=== PATIENT | male | born 1940 | race Caucasian/White ===

== ENCOUNTER 2017-11-04 10:49 | Inpatient (IN) | payer MEDICARE, OTHER ==
--- NOTE | 2017-11-04 10:55 | EDM.PDOC ---
ED HPI GENERAL MEDICAL PROBLEM - General Chief Complaint: Cardiovascular Problem Stated Complaint: A-fib Time Seen by Provider: 11/04/17 10:50 Source of Information: Reports: Patient, EMS, EMS Notes Reviewed, Family (Son), Old Records ([facility] EMR. No paper hospital chart available. ) History Limitations: Reports: No Limitations - History of Present Illness INITIAL COMMENTS - FREE TEXT/NARRATIVE: The patient was brought to the emergency room via ambulance with strategic consultant accompaniment after intercept with phlebotomy manager from the [facility] in [place]. Note that the patient was initially briefly evaluated by his regular provider, Helena Talamantes PA-C, at [facility] in [place], with EKG and 4 baby aspirin chew and swallow given in the clinic during that evaluation despite current Coumadin therapy. She did call me prior to patient's transfer for update of his history and care. The paramedics did call me prior to the patient' s arrival to our emergency room for permission to give one sublingual nitroglycerin tablet with resolution of his chest discomfort at time of arrival to this facility. Note that the patient initially had 6/10 bilateral chest pressure with radiation to the cervical regions bilaterally and mid thoracic area after waking up from sleep at about 8 AM this morning. He did take his medications this morning with no history of medication noncompliance. Note that the patient was evaluated in the emergency room at [facility] on 10/31 with discontinuation of his previous Lopressor at 12.5 mg by mouth twice a day secondary to some moderate bradycardia with heart rate in the 40s at that time. The patient did have some mild dyspnea with exertion and dizziness this morning with his above symptoms but no history of diaphoresis, paresthesias, orthostasis , orthopnea, recent decreased exercise tolerance, or other anginal-type symptoms. No recent history of abdominal pain, heartburn, nausea, diarrhea, melena, gross hematochezia, or any food intolerance, including fatty foods, etc. with normal bowel movement earlier this morning. The patient has had some mild URI symptoms and nonproductive cough during the last couple of weeks with no recent use of cold medications, etc.. No history of recent headaches, visual changes, diplopia, change in mental status, or other change in neurological status. He also denies any gross hematuria, colic, or other UTI symptoms Onset: Sudden Onset Date: 11/04/17 Onset Time: 08:00 Duration: Improving Location: Reports: Neck, Chest, Back, Radiates to (As above). Denies: Head, Face, Abdomen, Pelvis, Upper Extremity, Left, Upper Extremity, Right Quality: Reports: Pressure Severity: Moderate Improves with: Reports: Medication Worsens with: Reports: None Context: Reports: Other (As above) Associated Symptoms: Reports: Chest Pain, Cough, Shortness of Breath. Denies: Confusion, cough w sputum, Diaphoresis, Fever/Chills, Headaches, Loss of Appetite, Malaise, Nausea/Vomiting, Seizure, Syncope, Weakness Treatments PITCH GATHERER: Reports: Aspirin, Nitroglycerin, See EMS Report. Denies: IV/IO , Oxygen - Related Data Allergies Allergy/AdvReac Type Severity Reaction Status Date / Time No Known Allergies Allergy Verified 11/04/17 11:43 Home Meds: Home Meds Lisinopril [Prinivil] 20 mg PO DAILY 12/05/16 [History] atorvaSTATin [Lipitor] 10 mg PO DAILY 12/05/16 [History] Warfarin [Coumadin] 5 mg PO DAILY@1800 #60 tablet 12/09/16 [Rx] Omeprazole 20 mg PO DAILY #30 cap.cr 12/30/16 [Rx] Past Medical History HEENT History: Reports: Hard of Hearing, Impaired Vision, Other (See Below). Denies: Allergic Rhinitis, Cataract, Glaucoma, Macular Degeneration, Retinal Detachment Other HEENT History: Patient wears glasses. 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 Cardiovascular History: Reports: Afib, Arrhythmia (PVCs), High Cholesterol, Hypertension. Denies: Aneurysm, Blood Clots/VTE/DVT, CAD, Cardiomyopathy, Heart Failure, Heart Murmur, MO, Pacemaker, PVD, Stents, Syncope Other Cardiovascular History: Recurrent Afib with RVR initially diagnosed on with current Coumadin therapy. Additional history of PVCs. Dyslipidemia Respiratory History: Denies: Asthma, COPD, Intubation, Difficult, Intubation, Previous, PE, Pneumothorax, Sleep Apnea Gastrointestinal History: Reports: Diverticulosis, GERD, PUD, Other (See Below) . Denies: Celiac Disease, Cholelithiasis, Chronic Constipation, Chronic Diarrhea, Colon Polyp, GI Bleed, Hepatitis, Inflammatory Bowel Disease, Irritable Bowel Syndrome, Jaundice, Pancreatitis Other Gastrointestinal History: Previous history of gastric ulcer. Diverticulosis with history of diverticulitis on 12/25/16 Genitourinary History: Reports: BPH. Denies: Acute Renal Failure, Chronic Renal Insuffiency, Dialysis, Renal Calculus, STD, Urinary Incontinence, UTI, Recurrent Musculoskeletal History: Reports: Arthritis, Back Pain, Chronic, Fracture, Neck Pain, Chronic, Osteoarthritis, Other (See Below). Denies: Amputation, Gout, RA , SLE Other Musculoskeletal History: Left wrist fracture in 1986 Neurological History: Reports: None. Denies: Alzheimers Disease, Cerebral Aneurysms, Cerebral Palsy, Concussion, CVA, Headaches, Chronic, Head Trauma, Migraines, MS, Neuropathy, Diabetic, Neuropathy, Peripheral, Parkinson's, Seizure, TIA Psychiatric History: Reports: None. Denies: Abuse, Victim of, ADD, ADHD, Addiction, Anxiety, Dementia, Depression, Psych Hospitalization(s), PTSD, Suicide Attempt, Suicidal Ideation Endocrine/Metabolic History: Reports: None. Denies: Diabetes, Type I, Diabetes , Type II, Diabetes Mellitus, Type 3c, Hypothyroidism, IDDM Hematologic History: Reports: Anemia. Denies: Blood Transfusion(s), Iron Deficiency Immunologic History: Reports: None. Denies: AIDS, HIV, SLE Oncologic (Cancer) History: Reports: None. Denies: Basal Cell Carcinoma, Colon , Hodgkin's Lymphoma, Leukemia, Lymphoma, Malignant Melanoma, Non-Hodgkin's Lymphoma, Prostate, Squamous Cell Carcinoma Dermatologic History: Reports: None. Denies: Eczema, Psoriasis - Infectious Disease History Infectious Disease History: Reports: Chicken Pox, Mumps. Denies: C-Difficile, Measles, Meningitis, Mononucleosis, MRSA, Pertussis (Whooping Cough), Rheumatic Fever, Rubella, Scarlet Fever, Shingles, TB, VRE - Past Surgical History Head Surgeries/Procedures: Reports: None HEENT Surgical History: Reports: Oral Surgery, Other (See Below). Denies: Adenoidectomy, Cataract Surgery, Eye Surgery, Laser Surgery, LASIK, Myringotomy w Tube(s), Naso-Sinus Surgery, Polypectomy, Tonsillectomy Other HEENT Surgeries/Procedures: Complete teeth extraction with no current dentures Cardiovascular Surgical History: Reports: None. Denies: Varicose, Vascular Surgery Respiratory Surgical History: Reports: None. Denies: Lung Biopsies, Thoracentesis GI Surgical History: Reports: None. Denies: Appendectomy, Cholecystectomy, Colonoscopy, EGD, Hernia, Abdominal, Hernia, Inguinal, Hernia Repair/Other, Polypectomy Male Surgical History: Reports: None. Denies: Circumcision, TURP- Transurethral Resection of Prostate, Vasectomy Endocrine Surgical History: Reports: None Neurological Surgical History: Reports: None. Denies: C-Spine, Discectomy, Laminectomy, Lumbar Spine, Sacral Spine, Spinal Fusion, Vertebroplasty Musculoskeletal Surgical History: Reports: None. Denies: Arthroscopic Procedure , Carpal Tunnel, Ganglion Cyst, Hip Replacement, ORIF, Shoulder Surgery Oncologic Surgical History: Reports: None Dermatological Surgical History: Reports: None - Past Imaging History Past Imaging History: Reports: Cardiac Echo (Possible echocardiogram in November 2016 with results not available), CAT Scan (CT of the abdomen and pelvis with IV contrast on 12/25/16) Social & Family History - Family History Family Medical History: Noncontributory HEENT: Reports: None. Denies: Allergic Rhinitis, Glaucoma, Macular Degeneration , Retinal Detachment Cardiac: Reports: Arrhythmia, CAD, High Cholesterol, Hypertension, MO, Other ( See Below). Denies: Afib, Aneurysm, Blood Clots/VTE/DVT, Bypass, Heart Failure , Heart Murmur, PVD/COD, Syncope Other Cardiac Family History: Mother with unknown type of arrhythmia and fatal MO at age 49 with previous PTCA/stents. Father from an MO at age 68. Hypertension and hyperlipidemia mother Respiratory: Reports: None. Denies: COPD, PE, Pneumothorax, Sleep Apnea GI: Reports: GERD, PUD, Other (See Below). Denies: Celiac Disease, Cholelithiasis, Colon Polyps, GI bleed, Hepatitis, Inflammatory Bowel Disease, Irritable Bowel Syndrome, Pancreatitis Other GI Family History: Father with GERD and peptic ulcer disease : Reports: None. Denies: Diabetic Nephropathy, Dialysis, Renal Calculus, Renal Disease/Insufficiency, UTI, Recurrent OBGYN: Reports: None. Denies: Endometriosis, Recurrent Spontaneous Musculoskeletal: Reports: None. Denies: Gout, Osteoarthritis, RA, SLE Neurological: Reports: None. Denies: Alzheimers Disease, CVA, Dementia, Migraines, MS, Neuropathy, Diabetic, Parkinson's, Seizure, TIA Psychiatric: Reports: None. Denies: Abuse, Victim of, ADD, ADHD, Anxiety, Depression, Psych Hospitalization(s), PTSD, Suicide Attempt Endocrine/Metabolic: Reports: Diabetes, type II, Other (See Below). Denies: Hypothyroidism, IDDM Other Endocrine/Metabolic Family History: Mother, daughter, and paternal great uncle with diabetes mellitus Hematologic: Reports: None. Denies: Anemia, Transfusion Reaction Immunologic: Reports: None. Denies: AIDS, HIV, SLE Dermatologic: Reports: None. Denies: Eczema, Psoriasis Oncologic: Reports: None. Denies: Colon, Hodgkin's Lymphoma, Leukemia, Lymphoma , Non-Hodgkin's Lymphoma, Prostate, Skin - Tobacco Use Smoking Status *Q: Never Smoker Tobacco Use Within Last Twelve Months: No Used Tobacco, but Quit: No Smoking Cessation Information Provided To Patient: No Second Hand Smoke Exposure: No Second Hand Smoke Education Provided: No - Caffeine Use Caffeine Use: Reports: Soda (1 soda per week). Denies: Coffee, Energy Drinks, Tea Caffeine Use Comment: drinks decaf coffee, minimal soda - Alcohol Use Alcohol Use History: No Days Per Week of Alcohol Use: 0 (No previous DWIs, problems with alcohol abuse, etc.) Alcohol Use in Last Twelve Months: No - Recreational Drug Use Recreational Drug Use: No Drug Use in Last 12 Months: No Recreational Drug Type: Denies: Amphetamines (Speed), Cocaine, Heroin, Inhalants (Glues, Solvents, Aerosols), LSD (Acid), Marijuana/Hashish, Methamphetamine, Morphine, Oxycodone - Living Situation & Occupation Living situation: Reports: (1984, 2 children), Alone Occupation: Employed ([employer] and former) ED ROS GENERAL - Review of Systems Review Of Systems: ROS reveals no pertinent complaints other than HPI. ED EXAM, GENERAL - Physical Exam Exam: See Below Exam Limited By: No Limitations General Appearance: Alert, WD/WN, No Apparent Distress Eye Exam: Bilateral Eye: EOMI, Normal Inspection, PERRL Ears: Normal External Exam, Normal Canal, Hearing Loss (Bilateral hearing aids) Nose: Normal Inspection, Normal Mucosa, No Blood Throat/Mouth: Normal Lips, Normal Gums, Normal Oropharynx, Normal Voice, No Airway Compromise. No: Normal Teeth (Complete absent dentition), Dysphagia, Inflammation, Perioral Cyanosis Head: Atraumatic, Normocephalic. No: Facial Swelling, Facial Tenderness, Sinus Tenderness Neck: Supple, Non-Tender, Full Range of Motion, Carotid Bruit (Mild bilateral carotid bruits). No: Lymphadenopathy (L), Lymphadenopathy (R), Thyromegaly Respiratory/Chest: No Respiratory Distress, No Accessory Muscle Use, Chest Non- Tender, Rales (Mild bilateral basilar rales). No: Pleural Rub, Retractions, Prolonged Expiration Cardiovascular: No Edema, No Gallop, No JVD, No Murmur, No Rub, Tachycardia, Irregularly Irregular. No: Gallop/S3, Gallop/S4, Friction Rub Peripheral Pulses: 2+: Radial (L), Radial (R), Dorsalis Pedis (L), Dorsalis Pedis (R) GI/Abdominal: Normal Bowel Sounds, Soft, Non-Tender, No Organomegaly, No Distention, No Abnormal Bruit, No Mass, Pelvis Stable. No: Guarding (Male) Exam: Deferred Rectal (Males) Exam: Deferred Back Exam: Normal Inspection, Full Range of Motion. No: CVA Tenderness (L), CVA Tenderness (R), Muscle Spasm Extremities: Normal Inspection, Normal Range of Motion, Non-Tender, No Pedal Edema, Normal Capillary Refill. No: Cecilia's Sign Neurological: Alert, Oriented, CN II-XII Intact, Normal Cognition, Normal Gait, Normal Reflexes (Negative Babinski's), No Motor/Sensory Deficits Psychiatric: Normal Affect, Normal Mood Skin Exam: Warm, Dry, Intact, Normal Color, No Rash. No: Diaphoretic, Wound/ Incision Lymphatic: No Adenopathy EKG INTERPRETATION EKG Date: 11/04/17 Time: 11:12 Rhythm: A-Fib Rate (Beats/Min): 145 [place]: Normal (Left cardiac axis) P-Wave: Variable QRS: Normal (QRS interval of 0.08 seconds) ST-T: Depressed (1-[address] depressions in leads V3 through V5 with nonspecific ST changes in leads 1 and V6) QT: Normal PA/PQ Interval: Not applicable with poor R-wave progression in the anterior leads Comparison: Change From Previous EKG (Improved atrial fibrillation since previous EKG at the [facility] earlier this morning at 09:04 hours for repeat run of ventricular tachycardia at that time. Note previous normal sinus rhythm with heart rate of 48, poor R-wave progression, and biphasic P waves at time of EKG on 10/31/17. Follow-up EKG in this facility at 11:18 a.m. showed improved heart rate of 107 with resolution/improvement of previous nonspecific ST changes/depression as above) EKG Interpretation Comments: 1. Atrial fibrillation with rapid ventricular response 2. PVCs with short 4 beat run of PVCs 3. Anterolateral cardiac ischemia Course - Vital Signs Last Recorded V/S: Last Vital Signs Temp 37.2 C 11/04/17 10:50 Pulse 90 11/04/17 12:00 Resp 16 11/04/17 12:00 BP 105/84 11/04/17 12:00 Pulse Ox 100 11/04/17 12:00 Vital Signs - 24 hr 11/04/17 11/04/17 11/04/17 10:50 11:01 11:07 Temperature [ 37.2 C Temporal] Pulse, Peripheral Pulse, 172 H Peripheral [ Pulse Oximetry] Respiratory 14 Rate Blood Pressure Blood Pressure 108/66 92/61 87/62 L [Left Upper Arm ] O2 Sat by Pulse 96 Oximetry 11/04/17 11/04/17 11/04/17 11:13 11:14 11:16 Temperature [ Temporal] Pulse, 150 H Peripheral Pulse, 117 H 105 H Peripheral [ Pulse Oximetry] Respiratory 16 19 Rate Blood Pressure 89/62 L Blood Pressure 104/61 103/65 [Left Upper Arm ] O2 Sat by Pulse 99 99 Oximetry 11/04/17 11/04/17 11/04/17 11:30 11:45 12:00 Temperature [ Temporal] Pulse, Peripheral Pulse, 103 H 102 H 90 Peripheral [ Pulse Oximetry] Respiratory 16 14 16 Rate Blood Pressure Blood Pressure 103/73 115/66 105/84 [Left Upper Arm ] O2 Sat by Pulse 99 100 100 Oximetry - Orders/Labs/Meds Orders: Active Orders 24 hr Category Date Time Status Cardiac Monitoring [RC] . DIRECTED Care 11/04/17 10:56 Active EKG Documentation Completion [RC] ASDIRECTED Care 11/04/17 10:56 Active Oxygen Therapy, ED [RC] CONTINUOUS Care 11/04/17 10:56 Active Peripheral IV Care [RC] . DIRECTED Care 11/04/17 10:56 Active Pulse Oximetry [RC] CONTINUOUS Care 11/04/17 10:56 Active Up With Assistance [RC] PFP Care 11/04/17 10:56 Active Vital Signs [RC] PFP Care 11/04/17 10:56 Active Nothing per Oral Now Diet [DIET] Diet 11/04/17 Breakfast Active Chest 1V Frontal [CR] Stat Exams 11/04/17 10:56 Ordered Lactated Ringers [Ringers, Lactated] 1,000 ml Med 11/04/17 11:41 Ordered IV NOW Sodium Chloride 0.9% [Saline Flush] Med 11/04/17 10:56 Active 10 ml FLUSH ASDIRECTED PRN Obtain Past Medical Record [OM.PC] Urgent Oth 11/04/17 10:56 Active Peripheral IV Insertion Adult [OM.PC] Stat Oth 11/04/17 10:56 Ordered Resuscitation Status Stat Resus Stat 11/04/17 10:56 Ordered Medication Orders Lactated Ringer's (Ringers, Lactated) 1,000 mls @ 30 mls/hr IV NOW STA Stop: 11/05/17 21:00 Sodium Chloride (Saline Flush) 10 ml FLUSH ASDIRECTED PRN PRN Reason: Keep Vein Open Last Admin: 11/04/17 11:24 Dose: 10 ml Admin: 11/04/17 11:23 Dose: 10 ml Labs: Laboratory Tests 11/04/17 11/04/17 11/04/17 Range/Units 11:00 11:00 11:00 WBC 9.3 (4.0-10.2) K/uL RBC 4.69 (4.33-5.41) M/uL Hgb 14.6 (13.1-16.8) g/dL Hct 41.7 (39.0-49.0) % MCV 88.9 (84.0-98.0) fL MCH 31.1 (28.2-33.3) pg MCHC 35.0 (31.7-36.0) g/dL RDW 13.6 (11.2-14.1) % Plt Count 168 (150-350) K/uL Neut % (Auto) 67.0 (45.0-80.0) % Lymph % (Auto) 22.5 (10.0-50.0) % [place] % (Auto) 9.0 (2.0-14.0) % Eos % (Auto) 1.2 (0.0-5.0) % Baso % (Auto) 0.3 (0.0-2.0) % Neut # (Auto) 6.21 (1.40-7.00) K/uL Lymph # (Auto) 2.08 (0.50-3.50) K/uL [place] # (Auto) 0.83 (0.00-1.00) K/uL Eos # (Auto) 0.11 (0.00-0.50) K/uL Baso # (Auto) 0.03 (0.00-0.20) K/uL PT 27.9 H (9.8-11.7) SEC INR 2.5 APTT 36.4 H (22.1-29.8) SEC D-Dimer, Quantitative < 100 (0-400) ng/mL Sodium (136-145) mmol/L Potassium (3.5-5.1) mmol/L Chloride (98-107) mmol/L Carbon Dioxide (21.0-32.0) mmol/L BUN (7-18) mg/dL Creatinine (0.51-1.17) mg/dL Est Cr Clr Drug Dosing mL/min Estimated GFR (MDRD) mL/min Glucose (74-106) mg/dL Lactic Acid (0.4-2.0) mmol/L Uric Acid (2.6-7.2) mg/dL Calcium (8.5-10.1) mg/dL Magnesium (1.8-2.4) mg/dL Total Bilirubin (0.2-1.0) mg/dL AST (15-37) U/L ALT (12-78) U/L Alkaline Phosphatase (46-116) IU/L Creatine Kinase (26-308) U/L Creatine Kinase Index (0.0-2.5) % CK-MB (CK-2) (0.00-3.60) ng/mL Troponin I (0.000-0.056) ng/mL NT-Pro-B Natriuret Pep (0-125) pg/mL Total Protein (6.4-8.2) g/dL Albumin (3.4-5.0) g/dL TSH, Ultra Sensitive (0.358-3.740) mIU/mL 11/04/17 11/04/17 Range/Units 11:00 11:00 WBC (4.0-10.2) K/uL RBC (4.33-5.41) M/uL Hgb (13.1-16.8) g/dL Hct (39.0-49.0) % MCV (84.0-98.0) fL MCH (28.2-33.3) pg MCHC (31.7-36.0) g/dL RDW (11.2-14.1) % Plt Count (150-350) K/uL Neut % (Auto) (45.0-80.0) % Lymph % (Auto) (10.0-50.0) % [place] % (Auto) (2.0-14.0) % Eos % (Auto) (0.0-5.0) % Baso % (Auto) (0.0-2.0) % Neut # (Auto) (1.40-7.00) K/uL Lymph # (Auto) (0.50-3.50) K/uL [place] # (Auto) (0.00-1.00) K/uL Eos # (Auto) (0.00-0.50) K/uL Baso # (Auto) (0.00-0.20) K/uL PT (9.8-11.7) SEC INR APTT (22.1-29.8) SEC D-Dimer, Quantitative (0-400) ng/mL Sodium 137 (136-145) mmol/L Potassium 3.8 (3.5-5.1) mmol/L Chloride 104 (98-107) mmol/L Carbon Dioxide 24.1 (21.0-32.0) mmol/L BUN 15 (7-18) mg/dL Creatinine 1.14 (0.51-1.17) mg/dL Est Cr Clr Drug Dosing 56.92 mL/min Estimated GFR (MDRD) > 60 mL/min Glucose 153 H (74-106) mg/dL Lactic Acid 1.9 (0.4-2.0) mmol/L Uric Acid 5.9 (2.6-7.2) mg/dL Calcium 8.8 (8.5-10.1) mg/dL Magnesium 1.7 L (1.8-2.4) mg/dL Total Bilirubin 0.9 (0.2-1.0) mg/dL AST 18 (15-37) U/L ALT 19 (12-78) U/L Alkaline Phosphatase 81 (46-116) IU/L Creatine Kinase 185 (26-308) U/L Creatine Kinase Index 1.6 (0.0-2.5) % CK-MB (CK-2) 2.90 (0.00-3.60) ng/mL Troponin I 0.016 (0.000-0.056) ng/mL NT-Pro-B Natriuret Pep 419 H (0-125) pg/mL Total Protein 7.3 (6.4-8.2) g/dL Albumin 3.8 (3.4-5.0) g/dL TSH, Ultra Sensitive 3.416 (0.358-3.740) mIU/mL Meds: Medications Generic Name Dose Route Start Last Admin Trade Name Freq PRN Reason Stop Dose Admin Lactated Ringer's 1,000 mls @ 30 mls/hr 11/04/17 11:41 Ringers, Lactated IV 11/05/17 21:00 NOW STA Sodium Chloride 10 ml 11/04/17 10:56 11/04/17 11:24 Saline Flush FLUSH 10 ml ASDIRECTED PRN Administration Keep Vein Open Discontinued Medications Generic Name Dose Route Start Last Admin Trade Name Freq PRN Reason Stop Dose Admin Diltiazem HCl 20 mg 11/04/17 10:57 11/04/17 11:06 Diltiazem IVPUSH 11/04/17 10:58 20 mg ONETIME ONE Administration Famotidine 40 mg 11/04/17 10:56 11/04/17 11:09 Pepcid IVPUSH 11/04/17 10:57 40 mg ONETIME ONE Administration Lactated Ringer's 1,000 mls @ 999 mls/hr 11/04/17 11:14 11/04/17 11:16 Ringers, Lactated IV 11/04/17 12:14 999 mls/hr .BOLUS ONE Administration Metoprolol Tartrate 2.5 mg 11/04/17 11:13 11/04/17 11:14 Lopressor IVPUSH 11/04/17 11:14 2.5 mg ONETIME ONE Administration Metoprolol Tartrate Confirm 11/04/17 11:14 11/04/17 11:24 Lopressor Administered 11/04/17 11:15 Not Given Dose 5 mg .ROUTE .STK-MED ONE - Radiology Interpretation Free Text/Narrative:: cardiac monitor technician initially showed atrial fibrillation with rapid ventricular response initially in the 170s to 210s with very occasional PVCs noted but no ventricular tachycardia with improvement of heart rate to the 90s to 100s prior to admission Chest x-ray, portable, shows moderate COPD changes with no pulmonary infiltrates , pneumothorax, etc. Multiple pulmonary hypertension versus mild centralized CHF and/or pulmonary hypertension with some cardiomegaly Departure - Departure Time of Disposition: 12:25 Disposition: Admitted As Inpatient 66 Condition: Good Clinical Impression: Atrial fibrillation, Chest pain, CHF (congestive heart failure), Dyslipidemia, Hypertension, Peptic reflux disease, Hypomagnesemia, COPD (chronic obstructive pulmonary disease), Osteoarthritis, PVCs (premature ventricular contractions), Hyperglycemia - Problem List & Annotations (1) Chest pain SNOMED Code(s): 47958350 Code(s): R07.9 - CHEST PAIN, UNSPECIFIED Status: Acute Priority: High Current Visit: Yes Onset Date: 11/04/17 Annotation/Comment:: Chest pain completely resolved upon arrival to our facility as above. Symptoms also resolved after improvement of his tachycardia as above. Note initial evidence of anterolateral cardiac ischemia with his tachycardia, however improved EKG prior to admission. Various therapeutic options were given to the patient and his son, including transfer to [place], however they do wish to remain in this facility for recommended further cardiac workup. Initiate standard rule out MO orders with chest pain protocol initiated immediately upon patient's arrival to the emergency room. Note that the patient did previously receive aspirin at the clinic prior to transfer as above. Cardiology consultation depending on his clinical course. Further cardiac workup recommended as below. If patient requires transfer, they are requesting transfer to [facility] in [place]. Qualifiers: Chest pain type: chest pain due to myocardial ischemia Ischemic chest pain type: stable angina pectoris Qualified Code(s): I20.8 - Other forms of angina pectoris (2) Atrial fibrillation SNOMED Code(s): 27419351 Code(s): I48.91 - UNSPECIFIED ATRIAL FIBRILLATION Status: Acute Priority : High Current Visit: Yes Onset Date: 12/06/16 Annotation/Comment:: Persistent atrial fibrillation however improved tachycardia at time of admission. Note aggressive treatment as above. Note previous intolerance to low- dose beta maude therapy with exacerbation likely secondary to sudden discontinuation of his beta maude on 10/31 as above. Medication adjustment during this hospitalization with initiation of low-dose beta maude and diltiazem therapy orally on admission. Note PVCs and short run of ventricular tachycardia as above with patient currently on Coumadin with therapeutic INR today Qualifiers: Atrial fibrillation type: paroxysmal Qualified Code(s): I48.0 - Paroxysmal atrial fibrillation (3) PVCs (premature ventricular contractions) SNOMED Code(s): 96324592 Code(s): I49.3 - VENTRICULAR PREMATURE DEPOLARIZATION Status: Chronic Priority: High Current Visit: Yes Annotation/Comment:: As above. Note short run of ventricular tachycardia as above. Consider event monitor once medications have been adjusted (4) CHF (congestive heart failure) SNOMED Code(s): 73767199 Code(s): I50.9 - HEART FAILURE, UNSPECIFIED Status: Acute Priority: High Current Visit: Yes Onset Date: 11/04/17 Annotation/Comment:: Mild CHF closely secondary to his tachycardia. Secondary to some mild borderline hypertension delay diuretic therapy for now. Patient already on an ROYER inhibitor. Note previous echocardiogram in November 2016 with consideration of echocardiogram, Cardiolite stress test, etc. on an outpatient basis. Repeat blood work and EKG in the a.m. Qualifiers: Heart failure type: unspecified Heart failure chronicity: acute Qualified Code(s): I50.9 - Heart failure, unspecified (5) COPD (chronic obstructive pulmonary disease) SNOMED Code(s): 60986234 Code(s): J44.9 - CHRONIC OBSTRUCTIVE PULMONARY DISEASE, UNSPECIFIED Status : Chronic Priority: Medium Current Visit: Yes Annotation/Comment:: Nonproductive cough with no current medical therapy, recent history of fever, etc. Consider PFTs once his cardiac status has been determined Qualifiers: COPD type: emphysema Emphysema type: panlobular Qualified Code(s): J43.1 - Panlobular emphysema (6) Dyslipidemia SNOMED Code(s): 168230193 Code(s): E78.5 - HYPERLIPIDEMIA, UNSPECIFIED Status: Chronic Priority: Medium Current Visit: Yes Annotation/Comment:: Lipid panel in the a.m.. His statin therapy will need to be decreased secondary to his new diltiazem therapy (7) Hypertension SNOMED Code(s): 33166267 Code(s): I10 - ESSENTIAL (PRIMARY) HYPERTENSION Status: Chronic Priority : High Current Visit: Yes Annotation/Comment:: His blood pressures were somewhat low initially with treatment of his tachycardia. 350 mL bolus of lactated Ringer's given IV with continuation of IV fluids at 30 mL per hour with discretion secondary to his mild CHF. His blood pressure was significantly improved at time of admission Qualifiers: Hypertension type: essential hypertension Qualified Code(s): I10 - Essential (primary) hypertension (8) Hypomagnesemia SNOMED Code(s): 248399224 Code(s): E83.42 - HYPOMAGNESEMIA Status: Chronic Priority: Medium Current Visit: Yes Onset Date: 11/04/17 Annotation/Comment:: Initiate low- dose magnesium oxide therapy (9) Osteoarthritis SNOMED Code(s): 410102974 Code(s): M19.90 - UNSPECIFIED OSTEOARTHRITIS, UNSPECIFIED SITE Status: Chronic Priority: Medium Current Visit: Yes Annotation/Comment:: Stable by history Qualifiers: Osteoarthritis location: multiple joints Osteoarthritis type: primary Qualified Code(s): M15.0 - Primary generalized (osteo)arthritis (10) Peptic reflux disease SNOMED Code(s): 69646426 Code(s): K21.9 - GASTRO-ESOPHAGEAL REFLUX DISEASE WITHOUT ESOPHAGITIS Status: Chronic Priority: Medium Current Visit: Yes Annotation/Comment:: Stable by patient history. High-dose IV Pepcid given as GI prophylaxis (11) Hyperglycemia SNOMED Code(s): 75894014 Code(s): R73.9 - HYPERGLYCEMIA, UNSPECIFIED Status: Acute Priority: Medium Current Visit: Yes Onset Date: 11/04/17 Annotation/Comment:: Mildly elevated glucose today. Glycosylated hemoglobin in the a.m. with no known previous history of diabetes - Problem List Review Problem List Initiated/Reviewed/Updated: Yes - My Orders Last 24 Hours: My Active Orders 11/04/17 10:56 Cardiac Monitoring [RC] . DIRECTED EKG Documentation Completion [RC] ASDIRECTED Oxygen Therapy, ED [RC] CONTINUOUS Peripheral IV Care [RC] . DIRECTED Pulse Oximetry [RC] CONTINUOUS Up With Assistance [RC] PFP Vital Signs [RC] PFP Chest 1V Frontal [CR] Stat Sodium Chloride 0.9% [Saline Flush] 10 ml FLUSH ASDIRECTED PRN Obtain Past Medical Record [OM.PC] Urgent Peripheral IV Insertion Adult [OM.PC] Stat Resuscitation Status Stat 11/04/17 11:41 Lactated Ringers [Ringers, Lactated] 1,000 ml IV NOW 11/04/17 Breakfast Nothing per Oral Now Diet [DIET] - Assessment/Plan Admission H&P: Please use this note as an admission H&P Last 24 Hours: My Active Orders 11/04/17 10:56 Cardiac Monitoring [RC] . DIRECTED EKG Documentation Completion [RC] ASDIRECTED Oxygen Therapy, ED [RC] CONTINUOUS Peripheral IV Care [RC] . DIRECTED Pulse Oximetry [RC] CONTINUOUS Up With Assistance [RC] PFP Vital Signs [RC] PFP Chest 1V Frontal [CR] Stat Sodium Chloride 0.9% [Saline Flush] 10 ml FLUSH ASDIRECTED PRN Obtain Past Medical Record [OM.PC] Urgent Peripheral IV Insertion Adult [OM.PC] Stat Resuscitation Status Stat 11/04/17 11:41 Lactated Ringers [Ringers, Lactated] 1,000 ml IV NOW 11/04/17 Breakfast Nothing per Oral Now Diet [DIET] Assessment:: As above Plan: As above. Extensive precautions were given to the patient and his son, who are in agreement with the treatment plan. The patient will require about 3-4 days of inpatient/acute care secondary to multiple health problems as above. Ranjith Calvo M.D. at the [facility] assumes care in the a.m.
[2017-11-04] MEDS ORDERED: Famotidine 20 MG/2 ML SDV IVPUSH ONE (10:56)
[2017-11-04] MEDS ORDERED: Diltiazem 25 MG/5 ML SDV IVPUSH ONE (10:57)
[2017-11-04] MEDS ORDERED: Metoprolol Tartrate 5 MG/5 ML SDV IVPUSH ONE (11:13)
[2017-11-04] MEDS ORDERED: Lactated Ringers 1,000 ML IV ONE (11:14)
[2017-11-04] MEDS ORDERED: Metoprolol Tartrate 5 MG/5 ML SDV ONE (11:14)
[2017-11-04] MEDS: Sodium Chloride 0.9% 10 ML Syringe FLUSH PRN ×2 (11:23→11:24)
[2017-11-04 11:31] LABS: CHLORIDE,CL 104 mmol/L (98-107); SODIUM,NA 137 mmol/L (136-145)
[2017-11-04] MEDS ORDERED: Lactated Ringers 1,000 ML IV STA ×2 (11:41→13:05)
[2017-11-04] MEDS ORDERED: Temazepam 15 MG Cap PO PRN (12:49)
[2017-11-04] MEDS ORDERED: Sodium Chloride 0.9% 10 ML Syringe FLUSH PRN (12:49)
[2017-11-04] MEDS ORDERED: Metoprolol Succinate 25 MG Tab.ER PO ONE (12:59)
[2017-11-04] MEDS ORDERED: Magnesium Oxide 400 MG Tab PO ONE (12:59)
[2017-11-04] MEDS ORDERED: Acetaminophen 325 MG Tab PO PRN (13:00)
[2017-11-04 15:50] VITALS: BP 113/69
--- NOTE | 2017-11-04 16:19 | PCM.SN ---
- Free Text/Narrative Note: Note second set of enzymes this afternoon show elevated troponin I with patient still not having any chest pain or other anginal-type symptoms at this time. Note EKG was immediately repeated at 15:50 hours with no evidence of acute ischemic changes and patient currently in sinus bradycardia with a heart rate of 51. Vital signs and physical exam are stable with exception of some mild to moderate bradycardia. Initial telephone consultation at 16:[address] Rodriguez, clinical data abstractor at [facility], who recommends transfer to their facility for admission to hospitalist with planned heart catheterization in the a.m. Subsequent telephone consultation at 16:[address] Abel, hospitalist at [facility], who does accept the patient for direct admission. No further treatment recommendations given by either of the consulting physicians as above. Ambulance transfer with dispensary attendant accompaniment. Subsequent telephone consultation at 16:25 hours with the patient 's son, Maximiliano, who was updated concerning patient's status. He is in agreement with treatment plan.
[2017-11-04] MEDS ORDERED: Warfarin 5 MG Tab PO SCH (18:00)
[2017-11-05] MEDS ORDERED: Diltiazem 120 MG Cap.CD PO SCH (08:00)
[2017-11-05] MEDS ORDERED: Magnesium Oxide 400 MG Tab PO SCH (08:00)
[2017-11-05] MEDS ORDERED: Lisinopril 20 MG Tab PO SCH (08:00)
[2017-11-05] MEDS ORDERED: atorvaSTATin 10 MG Tab PO SCH (08:00)
[2017-11-05] MEDS ORDERED: Metoprolol Succinate 25 MG Tab.ER PO SCH ×2 (18:00)
== END 2017-11-04 16:55 | DRG 282 ==
LOC: LL.ED 10:49 → LL.MS 12:16
PROVIDERS: ADMIT Family Medicine; ATTEND Family Medicine
DX: I21.9 Acute myocardial infarction, unspecified (principal); I48.0 Paroxysmal atrial fibrillation; I49.3 Ventricular premature depolarization; I20.8 Other forms of angina pectoris; I50.9 Heart failure, unspecified; E78.00 Pure hypercholesterolemia, unspecified; I10 Essential (primary) hypertension; E78.5 Hyperlipidemia, unspecified; J43.1 Panlobular emphysema; E83.42 Hypomagnesemia; M15.0 Primary generalized (osteo)arthritis; K21.9 Gastro-esophageal reflux disease without esophagitis; R73.9 Hyperglycemia, unspecified; Z79.01 Long term (current) use of anticoagulants
CPT/HCPCS: 36415; 71045; 80053; 82550; 82553; 83605; 83735; 83880; 84443; 84484; 84550; 85025; 85379; 85610; 85730; 93005; 96361; 96374; 96375; 99285; A9270-GY; J3490; J7050; J7120; S0028

== ENCOUNTER 2020-09-07 14:43 | Emergency (ER) | payer MEDICARE, OTHER ==
[2020-09-07 14:52] VITALS: BP 157/78; PULSE 60
--- NOTE | 2020-09-07 14:59 | EDM.PDOC ---
ED HPI GENERAL MEDICAL PROBLEM - General Chief Complaint: Cardiovascular Problem Stated Complaint: HYPERTENSION Time Seen by Provider: 09/07/20 14:50 Source of Information: Reports: Patient, Old Records ([facility] EMR. No paper hospital chart available.), Other ([facility]) History Limitations: Reports: No Limitations - History of Present Illness INITIAL COMMENTS - FREE TEXT/NARRATIVE: The patient drove himself to the emergency room via private automobile concerned about his variable blood pressures during the last 24 hours. Patient did have a blood pressure of 172/92 earlier this morning at home with follow-up blood pressure at [facility] prior to arrival of 158/92. He has taken his blood pressures several times since yesterday with systolic blood pressures ranging in the 140s to 160s with diastolic blood pressures ranging in the 80s to 100s. No history of recent headaches, visual changes, diplopia, change in mental status, or other change in neurological status. The patient denies any chest pain/pressure, heart flutter, dizziness, orthostasis, orthopnea, diaphoresis, paresthesias, recent decreased exercise tolerance, or any other anginal-type symptoms. No recent history of abdominal pain, heartburn, nausea, diarrhea, melena, gross hematochezia, or any food intolerance, including fatty foods, etc.. The patient also denies any recent fever, cough, wheezing, dyspnea, etc.. He denies any pain or discomfort. Onset: Today Duration: Other (No pain) Quality: Reports: Same as Previous Episode Severity: Mild (Hypertension) Improves with: Reports: None Worsens with: Reports: None Context: Reports: Other (As above). 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: Other (see below) (No additional medications) - Related Data Allergies Allergy/AdvReac Type Severity Reaction Status Date / Time No Known Allergies Allergy Verified 11/04/17 11:43 Home Meds: Home Meds Lisinopril [Prinivil] 10 mg PO DAILY 12/05/16 [History] atorvaSTATin [Lipitor] 10 mg PO DAILY 12/05/16 [History] Warfarin [Coumadin] 5 mg PO DAILY@1800 #60 tablet 12/09/16 [Rx] Omeprazole 20 mg PO DAILY #30 cap.cr 12/30/16 [Rx] Metoprolol Succinate [Toprol XL] 25 mg PO QPM #30 tab.er 09/07/20 [Rx] Past Medical History HEENT History: Reports: Allergic Rhinitis, Glaucoma, Hard of Hearing, Impaired Vision, Retinal Detachment, Other (See Below). Denies: Cataract, Macular Degeneration Other HEENT History: Patient wears glasses. 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 Cardiovascular History: Reports: Afib, Arrhythmia, CAD, Cardiomyopathy, High Cholesterol, Hypertension, AZ, Stents. Denies: Aneurysm, Blood Clots/VTE/DVT, Heart Failure, Heart Murmur, Pacemaker, PVD, Syncope Other Cardiovascular History: Grade 1 diastolic dysfunction with mild left atrial enlargement by echocardiogram on 11/05/2017. Distal LAD 90-95% stenosis with stent placement as below. Recurrent Afib with RVR initially diagnosed on 12/06/16 with current Coumadin therapy. Additional history of PVCs short runs of PVC, and bradycardia with current pacemaker therapy. Dyslipidemia. Respiratory History: Reports: Intubation, Previous. Denies: Asthma, Bronchitis, Recurrent, COPD, Intubation, Difficult, PE, Pneumonia, Recurrent, Pneumothorax, Pulmonary Fibrosis, Sleep Apnea, TB Gastrointestinal History: Reports: Diverticulosis, Gastritis, GERD, PUD, Other (See Below). Denies: Celiac Disease, Cholelithiasis, Chronic Constipation, Chronic Diarrhea, Colon Polyp, Fatty Liver, Fecal Incontinence, GI Bleed, Hepatitis, Inflammatory Bowel Disease, Irritable Bowel Syndrome, Jaundice, Pancreatitis Other Gastrointestinal History: Previous history of gastric ulcer. Diverticulo sis with history of diverticulitis on 12/25/16 Genitourinary History: Reports: BPH. Denies: Acute Renal Failure, Chronic Renal Insuffiency, Dialysis, Renal Calculus, STD, Urinary Incontinence, UTI, Recurrent Musculoskeletal History: Reports: Arthritis, Back Pain, Chronic, Fracture, Neck Pain, Chronic, Osteoarthritis, Other (See Below). Denies: Amputation, Gout, RA, SLE Other Musculoskeletal History: Left wrist fracture in 1986 Neurological History: Reports: None. Denies: Alzheimers Disease, Cerebral Aneurysms, Cerebral Palsy, Concussion, CVA, Headaches, Chronic, Head Trauma, Migraines, MS, Neuropathy, Diabetic, Neuropathy, Peripheral, Parkinson's, Seizure, TIA Psychiatric History: Reports: None. Denies: Abuse, Victim of, ADD, ADHD, Addiction, Anxiety, Dementia, Depression, Psych Hospitalization(s), PTSD, Suicide Attempt, Suicidal Ideation Endocrine/Metabolic History: Reports: None, Hypomagnesemia. Denies: Diabetes, Type I, Diabetes, Type II, Diabetes Mellitus, Type 3c, Hypothyroidism, IDDM Hematologic History: Reports: Anemia. Denies: Blood Transfusion(s), Iron Deficiency Immunologic History: Reports: None. Denies: AIDS, HIV, SLE Oncologic (Cancer) History: Reports: None. Denies: Basal Cell Carcinoma, Colon, Hodgkin's Lymphoma, Leukemia, Lymphoma, Malignant Melanoma, Non-Hodgkin's Lymphoma, Prostate, Squamous Cell Carcinoma Dermatologic History: Reports: None. Denies: Eczema, Psoriasis - Infectious Disease History Infectious Disease History: Reports: Chicken Pox, Mumps. Denies: C-Difficile, Measles, Meningitis, Mononucleosis, MRSA, Novel Coronavirus, Pertussis (Whooping Cough), Rheumatic Fever, Rubella, Scarlet Fever, Shingles, TB, VRE - Past Surgical History Head Surgeries/Procedures: Reports: None HEENT Surgical History: Reports: Detached Retina, Oral Surgery, Other (See Below). Denies: Adenoidectomy, Cataract Surgery, Eye Surgery, Laser Surgery, LASIK, Myringotomy w Tube(s), Naso-Sinus Surgery, Polypectomy, Tonsillectomy Other HEENT Surgeries/Procedures: Previous detached retina repair. Complete teeth extraction with no current dentures. Cardiovascular Surgical History: Reports: Coronary Artery Stent, Pacer, Percutaneous Transluminal Angioplasty. Denies: Varicose, Vascular Surgery Other Cardiovascular Surgeries/Procedures: PTCA/stent placement on 11/05/2017 with subsequent pacemaker placement on 11/06/2017. Respiratory Surgical History: Reports: None. Denies: Lung Biopsies, Thoracentesis GI Surgical History: Reports: None. Denies: Appendectomy, Cholecystectomy, C olonoscopy, EGD, Hernia, Abdominal, Hernia, Inguinal, Hernia Repair/Other, Polypectomy Male Surgical History: Reports: None. Denies: Circumcision, TURP- Transurethral Resection of Prostate, Vasectomy Endocrine Surgical History: Reports: None. Denies: Thyroid Biopsy Neurological Surgical History: Reports: None. Denies: C-Spine, Discectomy, Laminectomy, Lumbar Spine, Sacral Spine, Spinal Fusion, Vertebroplasty Musculoskeletal Surgical History: Reports: None. Denies: Arthroscopic Procedure, Carpal Tunnel, Ganglion Cyst, Hip Replacement, ORIF, Shoulder Surgery Oncologic Surgical History: Reports: None Dermatological Surgical History: Reports: None - Past Imaging History Past Imaging History: Reports: Angiography (Heart catheterization on 11/05/2017 with findings as above.), Cardiac Echo (Last echocardiogram on 11/05/2017 with ejection fraction of 55-60% and findings as above. Possible echocardiogram in November 2016 with results not available.), CAT Scan (CT of the abdomen and pelvis with IV contrast on 12/25/16) Social & Family History - Family History Family Medical History: No Pertinent Family History HEENT: Reports: None. Denies: Allergic Rhinitis, Glaucoma, Macular Degeneration, Retinal Detachment Cardiac: Reports: Arrhythmia, CAD, High Cholesterol, Hypertension, AZ, Other (See Below). Denies: Afib, Aneurysm, Blood Clots/VTE/DVT, Bypass, Heart Failure, Heart Murmur, PVD/COD, Syncope Other Cardiac Family History: Mother with unknown type of arrhythmia and fatal AZ at age 49 with previous PTCA/stents. Father from an AZ at age 68. Hypertension and hyperlipidemia mother Respiratory: Reports: None. Denies: COPD, PE, Pneumothorax, Sleep Apnea GI: Reports: GERD, PUD, Other (See Below). Denies: Celiac Disease, Cholelithiasis, Colon Polyps, GI bleed, Hepatitis, Inflammatory Bowel Disease, Irritable Bowel Syndrome, Pancreatitis Other GI Family History: Father with GERD and peptic ulcer disease : Reports: None. Denies: Diabetic Nephropathy, Dialysis, Renal Calculus, Renal Disease/Insufficiency, UTI, Recurrent OBGYN: Reports: None. Denies: Endometriosis, Recurrent Spontaneous Musculoskeletal: Reports: None. Denies: Gout, Osteoarthritis, RA, SLE Neurological: Reports: None. Denies: Alzheimers Disease, CVA, Dementia, Migraines, MS, Neuropathy, Diabetic, Parkinson's, Seizure, TIA Psychiatric: Reports: None. Denies: Abuse, Victim of, ADD, ADHD, Anxiety, Depression, Psych Hospitalization(s), PTSD, Suicide Attempt Endocrine/Metabolic: Reports: Diabetes, type II, Other (See Below). Denies: Hypothyroidism, IDDM Other Endocrine/Metabolic Family History: Mother, daughter, and paternal great uncle with diabetes mellitus Hematologic: Reports: None. Denies: Anemia, Transfusion Reaction Immunologic: Reports: None. Denies: AIDS, HIV, SLE Dermatologic: Reports: None. Denies: Eczema, Psoriasis Oncologic: Reports: None. Denies: Colon, Hodgkin's Lymphoma, Leukemia, L ymphoma, Non-Hodgkin's Lymphoma, Prostate, Skin - Tobacco Use Tobacco Use Status *Q: Never Tobacco User Tobacco Use Within Last Twelve Months: No Used Tobacco, but Quit: No Smoking Cessation Information Provided To Patient: No Second Hand Smoke Exposure: No Second Hand Smoke Education Provided: No - Caffeine Use Caffeine Use: Reports: Soda (1 soda per week). Denies: Coffee, Energy Drinks, Tea Caffeine Use Comment: drinks decaf coffee, minimal soda - Alcohol Use Alcohol Use History: No Days Per Week of Alcohol Use: 0 Number of Drinks Per Day: 0 Total Drinks Per Week: 0 Total Drinks Per Week Comment: No previous DWIs, problems with alcohol abuse, etc. Alcohol Use in Last Twelve Months: No - Recreational Drug Use Recreational Drug Use: No Drug Use in Last 12 Months: No Recreational Drug Type: Denies: Amphetamines (Speed), Cocaine, Heroin, Inhalants (Glues, Solvents, Aerosols), LSD (Acid), Marijuana/Hashish, Methamphetamine, Morphine, Oxycodone - Living Situation & Occupation Living situation: Reports: (1985, 2 children), Alone Occupation: Employed ([employer]) ED ROS GENERAL - Review of Systems Review Of Systems: Comprehensive ROS is negative, except as noted in HPI. ED EXAM, GENERAL - Physical Exam Exam: See Below Exam Limited By: No Limitations General Appearance: Alert, WD/WN, No Apparent Distress Head: Atraumatic, Normocephalic. No: Facial Swelling, Facial Tenderness, Sinus Tenderness Neck: Normal Inspection, Supple, Non-Tender, Full Range of Motion, Carotid Bruit (Mild bilateral carotid bruits). No: Lymphadenopathy (L), Lymphadenopathy (R), Thyromegaly Respiratory/Chest: No Respiratory Distress, Lungs Clear, Normal Breath Sounds, No Accessory Muscle Use, Chest Non-Tender. No: Pleural Rub, Retractions Cardiovascular: Normal Peripheral Pulses, Regular Rate, Rhythm, No Edema, No Gallop, No JVD, No Murmur, No Rub, Other (Note current pacemaker). No: Gallop/S3, Gallop/S4, Friction Rub Peripheral Pulses: 2+: Radial (L), Radial (R) GI/Abdominal: Normal Bowel Sounds, Soft, Non-Tender, No Organomegaly, No Distention, No Abnormal Bruit, No Mass. No: Guarding (Male) Exam: Deferred Rectal (Males) Exam: Deferred Back Exam: Normal Inspection, Full Range of Motion. No: CVA Tenderness (L), CVA Tenderness (R), Muscle Spasm Extremities: Normal Inspection, Normal Range of Motion, Non-Tender, No Pedal Edema, Normal Capillary Refill. No: Pallor Neurological: Alert, Oriented, CN II-XII Intact, Normal Cognition, Normal Gait, No Motor/Sensory Deficits Psychiatric: Normal Affect, Normal Mood Skin Exam: Warm, Dry, Intact, Normal Color, No Rash, Ecchymosis (Mild ecchymosis on the dorsal surface of the left hand). No: Diaphoretic, Wound/Incision Lymphatic: No Adenopathy Course - Vital Signs Last Recorded V/S: Last Vital Signs Temp 36.6 C 09/07/20 14:50 Pulse 60 09/07/20 14:50 Resp 16 09/07/20 14:50 BP 157/78 H 09/07/20 14:50 Pulse Ox 100 09/07/20 14:50 Vital Signs - 24 hr 09/07/20 14:50 Temperature [ 36.6 C Temporal] Pulse, 60 Peripheral [ Pulse Oximetry] Respiratory 16 Rate Blood Pressure 157/78 H [Left Upper Arm ] O2 Sat by Pulse 100 Oximetry - Orders/Labs/Meds Labs: None Meds: None - Re-Assessments/Exams Free Text/Narrative Re-Assessment/Exam: None Departure - Departure Time of Disposition: 15:50 Disposition: Home, Self-Care 01 Condition: Good Clinical Impression: Hypertension Qualifiers: Hypertension type: essential hypertension Qualified Code(s): I10 - Essential (primary) hypertension COPD (chronic obstructive pulmonary disease) Qualifiers: COPD type: emphysema Emphysema type: panlobular Qualified Code(s): J43.1 - Panlobular emphysema Atrial fibrillation Qualifiers: Atrial fibrillation type: paroxysmal Qualified Code(s): I48.0 - Paroxysmal atrial fibrillation Coronary artery disease Qualifiers: Coronary Disease-Associated Artery/Lesion type: [place] artery [place] vs. transplanted heart: [place] heart Associated angina: without angina Qualified Code(s): I25.10 - Atherosclerotic heart disease of [place] coronary artery without angina pectoris Prescriptions: Metoprolol Succinate [Toprol XL] 25 mg PO QPM #30 tab.er Instructions: Hypertension, Adult Referrals: Helena Fitzpatrick PA-C [Primary Care Provider] - Forms: ED Department Discharge Additional Instructions: 1. Followup with your regular provider tomorrow as already scheduled/ directed. Further blood work and work-up per her instructions at that time, although I do recommend that an INR be repeated in about 1 week secondary to your newly initiated Toprol-XL today. Bring these discharge instructions with you to that visit. 2. Home blood pressure checks before your morning medicines and before your afternoon medications with record to be brought with you to each of your visits with your regular provider. 3. Immediately after this visit verify that your cellular telephone's voicemail has been activated and is empty. Also verify that your home telephone's answering machine is operating properly and has space to receive messages. Note that it is sometimes necessary for us to be able to contact you at a later date to discuss your medical care. 4. Please remember that we are ALWAYS here for you and want to answer any questions you may have. Feel free to call the hospital any time and we call you back JONATHON. Sepsis Event Note (ED) - Evaluation Sepsis Screening Result: No Definite Risk - Focused Exam Vital Signs: Vital Signs Temp Pulse Resp BP Pulse Ox 09/07/20 14:50 36.6 C 60 16 157/78 H 100 - Problem List & Annotations (1) Hypertension SNOMED Code(s): 85030379 Code(s): I10 - ESSENTIAL (PRIMARY) HYPERTENSION Status: Chronic Priority: High Annotation/Comment:: His blood pressures were somewhat elevated during the last 24 hours, however not of any major concern. Patient was instructed on twice daily home blood pressure evaluations and avoiding excessive blood pressure checks at home during the day secondary to anxiety component. Various therapeutic options were discussed with initiation of low-dose Toprol-XL starting this afternoon for better 24-hour coverage and as cardiac prophylaxis secondary to his heart disease as above. Continue to observe his blood pressures closely by his regular provider with the patient apparently already have an appointment with her tomorrow. Further blood work, etc. as already ordered and/or as per his clinical course. No indication for any further blood work, EKG, etc. today. Qualifiers: Hypertension type: essential hypertension Qualified Code(s): I10 - Essen tial (primary) hypertension (2) Coronary artery disease SNOMED Code(s): 43143371 Code(s): I25.10 - ATHSCL HEART DISEASE OF [place] CORONARY ARTERY W/O ANG PCTRS Status: Chronic Priority: Medium Onset Date: 11/05/17 Annotation/Comment:: Note PTCA/stent as above. No recent anginal complaints. Qualifiers: Coronary Disease-Associated Artery/Lesion type: [place] artery [place] vs. transplanted heart: [place] heart Associated angina: without angina Qualified Code(s): I25.10 - Atherosclerotic heart disease of [place] coronary artery without angina pectoris (3) CHF (congestive heart failure) SNOMED Code(s): 39766209 Code(s): I50.9 - HEART FAILURE, UNSPECIFIED Status: Acute Priority: High Onset Date: 11/04/17 Annotation/Comment:: No recent chest pain or anginal type symptoms. No clinical evidence of CHF. Qualifiers: Heart failure type: unspecified Heart failure chronicity: acute Qualified Code(s): I50.9 - Heart failure, unspecified (4) Atrial fibrillation SNOMED Code(s): 20940765 Code(s): I48.91 - UNSPECIFIED ATRIAL FIBRILLATION Status: Acute Priority: High Onset Date: 12/06/16 Annotation/Comment:: No current pacemaker therapy. No recent history of significant arrhythmia despite prior history of PVCs, short runs, occasional bradycardia, etc.. Note current Coumadin therapy. Qualifiers: Atrial fibrillation type: paroxysmal Qualified Code(s): I48.0 - Paroxysmal atrial fibrillation (5) COPD (chronic obstructive pulmonary disease) SNOMED Code(s): 10595804 Code(s): J44.9 - CHRONIC OBSTRUCTIVE PULMONARY DISEASE, UNSPECIFIED Status: Chronic Priority: Medium Annotation/Comment:: No recent fever or bronchitic type symptoms Qualifiers: COPD type: emphysema Emphysema type: panlobular Qualified Code(s): J43.1 - Panlobular emphysema (6) Dyslipidemia SNOMED Code(s): 218279268 Code(s): E78.5 - HYPERLIPIDEMIA, UNSPECIFIED Status: Chronic Priority: Medium Annotation/Comment:: Continue to observe closely by his regular provider. - Problem List Review Problem List Initiated/Reviewed/Updated: Yes - Assessment/Plan Assessment:: As above Plan: As above. Extensive precautions were given to the patient, who is in agreement with the treatment plan. See Patient Instructions for further treatment and plan.
== END 2020-09-07 15:40 | disposition home or self-care (01) ==
LOC: LL.ED 14:43
DX: J43.1 Panlobular emphysema (principal); I10 Essential (primary) hypertension; I48.0 Paroxysmal atrial fibrillation; I25.10 Atherosclerotic heart disease of native coronary artery without angina pectoris; E78.00 Pure hypercholesterolemia, unspecified; I25.2 Old myocardial infarction; K21.9 Gastro-esophageal reflux disease without esophagitis; Z79.01 Long term (current) use of anticoagulants; Z79.899 Other long term (current) drug therapy; Z95.5 Presence of coronary angioplasty implant and graft
CPT/HCPCS: 99283

== ENCOUNTER 2022-09-13 21:13 | Emergency (ER) | payer MEDICARE, OTHER ==
[2022-09-13] MEDS ORDERED: Sodium Chloride 0.9% 10 ML Syringe FLUSH PRN (21:30)
[2022-09-13] MEDS ORDERED: Acetaminophen 500 MG Tab PO ONE (21:46)
[2022-09-13 21:57] LABS: ANION GAP 11.6 meq/L (7-15)
[2022-09-13] MEDS ORDERED: Sodium Chloride 1 GM Tab PO ONE (22:17)
== END 2022-09-13 22:31 | disposition home or self-care (01) ==
LOC: LL.ED 21:13
DX: S29.012A Strain of muscle and tendon of back wall of thorax, initial encounter (principal); I48.91 Unspecified atrial fibrillation; I25.10 Atherosclerotic heart disease of native coronary artery without angina pectoris; I10 Essential (primary) hypertension; E78.00 Pure hypercholesterolemia, unspecified; K21.9 Gastro-esophageal reflux disease without esophagitis; M19.90 Unspecified osteoarthritis, unspecified site; Z79.01 Long term (current) use of anticoagulants; Z79.899 Other long term (current) drug therapy; W00.0XXA Fall on same level due to ice and snow, initial encounter
CPT/HCPCS: 36415; 70450; 71101-LT; 80053; 85025; 85610; 99283; 99284; A9270-GY

== ENCOUNTER 2022-11-28 22:05 | Emergency (ER) | payer MEDICARE, OTHER ==
[2022-11-28 22:11] VITALS: PULSE 60
[2022-11-28 22:59] LABS: ANION GAP 12.7 meq/L (7-15)
[2022-11-28] MEDS ORDERED: Warfarin 2.5 MG Tab PO ONE (23:02)
[2022-11-28 23:07] VITALS: BP 143/92
== END 2022-11-28 23:30 | disposition home or self-care (01) ==
LOC: LL.ED 22:05
DX: S80.12XA Contusion of left lower leg, initial encounter (principal); I48.91 Unspecified atrial fibrillation; I25.2 Old myocardial infarction; I11.9 Hypertensive heart disease without heart failure; E78.00 Pure hypercholesterolemia, unspecified; Z79.01 Long term (current) use of anticoagulants; Z79.899 Other long term (current) drug therapy; W22.09XA Striking against other stationary object, initial encounter
CPT/HCPCS: 36415; 73590-LT; 80053; 85025; 85610; 99283; 99284

== ENCOUNTER 2023-06-19 14:19 | Emergency (ER) | payer MEDICARE, OTHER ==
[2023-06-19 14:39] LABS: BASOPHILS ABSOLUTE AUTO 0.03 K/uL (0.00-0.20); BASOPHILS PERCENT AUTO 0.3 % (0.0-2.0); EOSINOPHILS ABSOLUTE AUTO 0.13 K/uL (0.00-0.50); EOSINOPHILS PERCENT AUTO 1.3 % (0.0-5.0); HEMATOCRIT 38.8 % (39.0-49.0); HEMOGLOBIN 13.3 g/dL (13.1-16.8); LYMPHOCYTES ABSOLUTE AUTO 1.53 K/uL (0.50-3.50); MEAN CORPUSCULAR HEMOGLOBIN 30.4 pg (28.2-33.3); MEAN CORPUSCULAR HGB CONC 34.3 g/dL (31.7-36.0); MEAN CORPUSCULAR VOLUME 88.6 fL (84.0-98.0); MONOCYTES ABSOLUTE AUTO 1.34 K/uL (0.00-1.00); MONOCYTES PERCENT AUTO 13.1 % (2.0-14.0); NEUTROPHILS ABSOLUTE AUTO 7.18 K/uL (1.40-7.00); NEUTROPHILS PERCENT AUTO 70.3 % (45.0-80.0); PLATELET COUNT,PLT 237 K/uL (150-350); RED BLOOD CELL COUNT 4.38 M/uL (4.33-5.41); RED CELL DISTRIBUTION WIDTH 13.1 % (11.2-14.1); WHITE BLOOD CELL COUNT,WBC 10.2 K/uL (4.0-10.2)
[2023-06-19 14:56] LABS: INR 3.3 (0.9-1.1); PROTHROMBIN TIME 31.6 SEC (9.0-11.1)
[2023-06-19 15:03] LABS: ALANINE AMINOTRANSFERASE,ALT 14 U/L (12-78); ALBUMIN 3.4 g/dL (3.4-5.0); ALKALINE PHOSPHATASE 81 IU/L (46-116); ASPARTATE AMNIOTRANSFERASE,AST 19 U/L (15-37); BILIRUBIN TOTAL 0.8 mg/dL (0.2-1.0); BLOOD UREA NITROGEN,BUN 18 mg/dL (7-18); CALCIUM 8.9 mg/dL (8.5-10.1); CARBON DIOXIDE,CO2 23.5 mmol/L (21.0-32.0); CHLORIDE,CL 96 mmol/L (98-107); GLUCOSE RANDOM 113 mg/dL (70-99); POTASSIUM,K 4.1 mmol/L (3.5-5.1); PROTEIN TOTAL,TP 7.6 g/dL (6.4-8.2); SODIUM,NA 130 mmol/L (136-145)
[2023-06-19 15:04] LABS: ANION GAP 14.6 meq/L (7-15); ESTIMATED GFR 50 mL/min (>=60)
[2023-06-19] MEDS ORDERED: Metoprolol Tartrate 5 MG/5 ML SDV IVPUSH ONE (15:09)
[2023-06-19] MEDS ORDERED: Diltiazem 25 MG/5 ML SDV IVPUSH ONE ×2 (15:32→17:39)
[2023-06-19] MEDS ORDERED: Diltiazem 125 MG in Sodium Chloride 0.9% 100 ML IV SCH (17:45)
[2023-06-19] MEDS ORDERED: Sodium Chloride 0.9% 10 ML Syringe FLUSH PRN (17:46)
[2023-06-19 20:25] VITALS: BP 106/90; PULSE 98
== END 2023-06-19 20:00 ==
LOC: LL.ED 14:19
DX: I48.91 Unspecified atrial fibrillation (principal); I11.0 Hypertensive heart disease with heart failure; I50.9 Heart failure, unspecified; E78.00 Pure hypercholesterolemia, unspecified; I25.10 Atherosclerotic heart disease of native coronary artery without angina pectoris; K21.9 Gastro-esophageal reflux disease without esophagitis; E78.5 Hyperlipidemia, unspecified; Z95.0 Presence of cardiac pacemaker; Z95.5 Presence of coronary angioplasty implant and graft; Z79.01 Long term (current) use of anticoagulants; Z79.899 Other long term (current) drug therapy
CPT/HCPCS: 36415; 71045; 80053; 84484; 85025; 85610; 93005; 96374; 96375; 96376; 99285-25; J3490

== ENCOUNTER 2023-11-15 22:29 | Emergency (ER) | payer MEDICARE, OTHER ==
[2023-11-15] MEDS: Take Home: predniSONE 20 MG, 4 Tab Pack PO ONE (23:10)
[2023-11-15] MEDS: methylPREDNISolone Sodium Succinate 125 MG/2 ML SDV IM ONE (23:10)
[2023-11-15 23:16] VITALS: BP 167/98; PULSE 60
== END 2023-11-15 23:26 | disposition home or self-care (01) ==
LOC: LL.ED 22:29
DX: M13.0 Polyarthritis, unspecified (principal); I48.91 Unspecified atrial fibrillation; I25.10 Atherosclerotic heart disease of native coronary artery without angina pectoris; E78.00 Pure hypercholesterolemia, unspecified; I10 Essential (primary) hypertension; I25.2 Old myocardial infarction; K21.9 Gastro-esophageal reflux disease without esophagitis; Z79.01 Long term (current) use of anticoagulants; Z79.899 Other long term (current) drug therapy; Z86.19 Personal history of other infectious and parasitic diseases; Z95.5 Presence of coronary angioplasty implant and graft
CPT/HCPCS: 96372; 99283; 99284; A9270-GY; J2930

== ENCOUNTER 2024-02-19 17:22 | Observation (INO) | payer MEDICARE, OTHER ==
[2024-02-19 18:12] LABS: BASOPHILS ABSOLUTE AUTO 0.01 K/uL (0.00-0.20); BASOPHILS PERCENT AUTO 0.2 % (0.0-2.0); EOSINOPHILS ABSOLUTE AUTO 0.02 K/uL (0.00-0.50); EOSINOPHILS PERCENT AUTO 0.3 % (0.0-5.0); HEMATOCRIT 36.8 % (39.0-49.0); HEMOGLOBIN 12.7 g/dL (13.1-16.8); LYMPHOCYTES ABSOLUTE AUTO 1.03 K/uL (0.50-3.50); LYMPHOCYTES PERCENT AUTO 16.8 % (10.0-50.0); MEAN CORPUSCULAR HEMOGLOBIN 30.2 pg (28.2-33.3); MEAN CORPUSCULAR HGB CONC 34.5 g/dL (31.7-36.0); MEAN CORPUSCULAR VOLUME 87.4 fL (84.0-98.0); MONOCYTES ABSOLUTE AUTO 1.38 K/uL (0.00-1.00); MONOCYTES PERCENT AUTO 22.5 % (2.0-14.0); NEUTROPHILS PERCENT AUTO 60.2 % (45.0-80.0); PLATELET COUNT,PLT 157 K/uL (150-350); RED BLOOD CELL COUNT 4.21 M/uL (4.33-5.41); RED CELL DISTRIBUTION WIDTH 14.7 % (11.2-14.1); WHITE BLOOD CELL COUNT,WBC 6.1 K/uL (4.0-10.2)
[2024-02-19 18:54] LABS: LACTIC ACID 1.4 mmol/L (0.4-2.0)
[2024-02-19 19:03] LABS: ALANINE AMINOTRANSFERASE,ALT 22 U/L (12-78); ALBUMIN 3.7 g/dL (3.4-5.0); ALKALINE PHOSPHATASE 79 IU/L (46-116); ASPARTATE AMNIOTRANSFERASE,AST 27 U/L (15-37); BILIRUBIN TOTAL 0.6 mg/dL (0.2-1.0); BLOOD UREA NITROGEN,BUN 10 mg/dL (7-18); CALCIUM 8.6 mg/dL (8.5-10.1); CARBON DIOXIDE,CO2 26.2 mmol/L (21.0-32.0); CHLORIDE,CL 88 mmol/L (98-107); CREATINE KINASE,CK 82 U/L (26-308); CREATININE 1.28 mg/dL (0.51-1.17); GLUCOSE RANDOM 91 mg/dL (70-99); POTASSIUM,K 4.5 mmol/L (3.5-5.1); PRO B-TYPE NATRIUR PEPT,BNPPRO 2374 pg/mL (0-125); PROTEIN TOTAL,TP 7.2 g/dL (6.4-8.2)
[2024-02-19 19:04] LABS: ANION GAP 12.3 meq/L (7-15); ESTIMATED GFR 56 mL/min (>=60); SODIUM,NA 122 mmol/L (136-145)
[2024-02-19] MEDS ORDERED: Sodium Chloride 0.9% 10 ML Syringe FLUSH PRN (19:14)
[2024-02-19 19:20] LABS: INFLUENZA A NAA NEGATIVE (NEGATIVE); INFLUENZA B NAA NEGATIVE (NEGATIVE); RESPIRATORY SYNCYTIAL VIR NAA NEGATIVE (NEGATIVE)
[2024-02-19 19:23] LABS: CORONAVIRUS COVID-19 NAA POSITIVE (NEGATIVE)
[2024-02-19] MEDS: Sodium Chloride 3% 500 ML IV SCH (19:26)
[2024-02-19 21:13] LABS: BLOOD UREA NITROGEN,BUN 10 mg/dL (7-18); CALCIUM 8.3 mg/dL (8.5-10.1); CARBON DIOXIDE,CO2 25.1 mmol/L (21.0-32.0); CHLORIDE,CL 89 mmol/L (98-107); CREATININE 1.15 mg/dL (0.51-1.17); GLUCOSE RANDOM 86 mg/dL (70-99); MAGNESIUM 1.6 mg/dL (1.8-2.4); POTASSIUM,K 4.6 mmol/L (3.5-5.1)
[2024-02-19 21:15] LABS: ANION GAP 12.5 meq/L (7-15); ESTIMATED GFR 63 mL/min (>=60); SODIUM,NA 122 mmol/L (136-145)
[2024-02-20 00:37] LABS: BLOOD UREA NITROGEN,BUN 10 mg/dL (7-18); CARBON DIOXIDE,CO2 24.7 mmol/L (21.0-32.0); CHLORIDE,CL 89 mmol/L (98-107); CREATININE 1.05 mg/dL (0.51-1.17); GLUCOSE RANDOM 95 mg/dL (70-99); POTASSIUM,K 4.2 mmol/L (3.5-5.1)
[2024-02-20 00:41] LABS: ANION GAP 12.5 meq/L (7-15); ESTIMATED GFR 70 mL/min (>=60); SODIUM,NA 122 mmol/L (136-145)
[2024-02-20] MEDS ORDERED: Sodium Chloride 3% 500 ML IV SCH (01:00)
[2024-02-20] MEDS: Calcium Carbonate 500 MG Tab.Chew PO ONE (03:17)
[2024-02-20 03:18] LABS: BLOOD UREA NITROGEN,BUN 10 mg/dL (7-18); CARBON DIOXIDE,CO2 24.8 mmol/L (21.0-32.0); CHLORIDE,CL 90 mmol/L (98-107); CREATININE 1.18 mg/dL (0.51-1.17); GLUCOSE RANDOM 84 mg/dL (70-99); POTASSIUM,K 4.1 mmol/L (3.5-5.1)
[2024-02-20 03:23] LABS: ANION GAP 13.3 meq/L (7-15); ESTIMATED GFR 61 mL/min (>=60); SODIUM,NA 124 mmol/L (136-145)
[2024-02-20 06:27] LABS: BLOOD UREA NITROGEN,BUN 10 mg/dL (7-18); CALCIUM 8.2 mg/dL (8.5-10.1); CARBON DIOXIDE,CO2 23.9 mmol/L (21.0-32.0); CHLORIDE,CL 91 mmol/L (98-107); CREATININE 1.18 mg/dL (0.51-1.17); GLUCOSE RANDOM 85 mg/dL (70-99); POTASSIUM,K 4.2 mmol/L (3.5-5.1)
[2024-02-20 06:28] LABS: ANION GAP 12.3 meq/L (7-15); ESTIMATED GFR 61 mL/min (>=60); INR 2.4 (0.9-1.1); PROTHROMBIN TIME 22.8 SEC (9.0-11.1); SODIUM,NA 123 mmol/L (136-145)
[2024-02-20 11:14] LABS: ANION GAP 14.1 meq/L (7-15); BLOOD UREA NITROGEN,BUN 11 mg/dL (7-18); CALCIUM 7.9 mg/dL (8.5-10.1); CARBON DIOXIDE,CO2 22.9 mmol/L (21.0-32.0); CHLORIDE,CL 92 mmol/L (98-107); CREATININE 1.13 mg/dL (0.51-1.17); ESTIMATED GFR 64 mL/min (>=60); GLUCOSE RANDOM 117 mg/dL (70-99); SODIUM,NA 125 mmol/L (136-145)
[2024-02-20 16:57] LABS: CALCIUM 7.7 mg/dL (8.5-10.1); CARBON DIOXIDE,CO2 22.9 mmol/L (21.0-32.0); CREATININE 1.11 mg/dL (0.51-1.17); EST CRCL DRUG DOSING (CG) 47.14 mL/min; POTASSIUM,K 4.4 mmol/L (3.5-5.1)
[2024-02-20 16:59] LABS: ANION GAP 14.5 meq/L (7-15)
[2024-02-20] MEDS: Sodium Chloride 3% 500 ML IV SCH (17:03)
[2024-02-20] MEDS ORDERED: Nitroglycerin 0.4 MG Tab.SL SL PRN (18:48)
[2024-02-20] MEDS ORDERED: Non-Formulary Medication 1 Each (Prednisone [Prednisone] 10 MG Tablet) PO PRN (18:48)
[2024-02-20] MEDS ORDERED: predniSONE 5 MG Tab PO PRN (19:18)
[2024-02-20] MEDS: Calcium Carbonate 750 MG Tab.Chew PO PRN (19:30)
[2024-02-20] MEDS: Warfarin 2.5 MG Tab PO ONE (19:55)
[2024-02-20 20:21] LABS: CALCIUM 7.6 mg/dL (8.5-10.1); CARBON DIOXIDE,CO2 23.9 mmol/L (21.0-32.0); CREATININE 1.1 mg/dL (0.51-1.17); EST CRCL DRUG DOSING (CG) 47.57 mL/min; POTASSIUM,K 4.2 mmol/L (3.5-5.1)
[2024-02-20 20:22] LABS: ANION GAP 13.3 meq/L (7-15)
[2024-02-20] MEDS: Acetaminophen 500 MG Tab PO PRN (20:45)
[2024-02-21 07:38] LABS: CALCIUM 7.6 mg/dL (8.5-10.1); CARBON DIOXIDE,CO2 22.7 mmol/L (21.0-32.0); CREATININE 1.09 mg/dL (0.51-1.17); EST CRCL DRUG DOSING (CG) 48.01 mL/min; POTASSIUM,K 4.2 mmol/L (3.5-5.1)
[2024-02-21 07:54] LABS: ANION GAP 12.5 meq/L (7-15)
[2024-02-21] MEDS ORDERED: Metoprolol Succinate 50 MG Tab.ER PO SCH (08:00)
[2024-02-21] MEDS ORDERED: Non-Formulary Medication 1 Each (Metoprolol Succinate [Metoprolol Succinate] 100 MG Tab.Er PO SCH (08:00)
[2024-02-21] MEDS: sulfaSALAzine 500 MG Tab PO SCH (08:45)
[2024-02-21] MEDS: Metoprolol Succinate 50 MG Tab.ER PO SCH (08:45)
[2024-02-21] MEDS: Losartan 25 MG Tab PO SCH (08:45)
[2024-02-21 11:57] LABS: CALCIUM 7.6 mg/dL (8.5-10.1); CARBON DIOXIDE,CO2 25.5 mmol/L (21.0-32.0); CREATININE 0.97 mg/dL (0.51-1.17); EST CRCL DRUG DOSING (CG) 53.95 mL/min
[2024-02-21 11:58] LABS: ANION GAP 9.5 meq/L (7-15)
[2024-02-21] MEDS: Sennosides/Docusate Sodium 50-8.6 MG Tab PO PRN (13:01)
[2024-02-21 17:15] LABS: CALCIUM 7.8 mg/dL (8.5-10.1); CARBON DIOXIDE,CO2 26.3 mmol/L (21.0-32.0); CREATININE 1.12 mg/dL (0.51-1.17); EST CRCL DRUG DOSING (CG) 46.72 mL/min; POTASSIUM,K 4.4 mmol/L (3.5-5.1)
[2024-02-21 17:25] LABS: ANION GAP 10.1 meq/L (7-15)
[2024-02-21] MEDS ORDERED: Warfarin 5 MG Tab PO SCH (18:00)
[2024-02-21 19:43] VITALS: BP 141/82; PULSE 52
[2024-02-21 20:16] LABS: CARBON DIOXIDE,CO2 26.2 mmol/L (21.0-32.0); CREATININE 1.08 mg/dL (0.51-1.17); EST CRCL DRUG DOSING (CG) 48.45 mL/min; POTASSIUM,K 4.3 mmol/L (3.5-5.1)
[2024-02-21 20:17] LABS: ANION GAP 11.1 meq/L (7-15)
== END 2024-02-21 21:10 | disposition home or self-care (01) ==
LOC: LL.ED 17:22 → LL.MS 02-20 13:11
PROVIDERS: ADMIT Physician Assistant; ATTEND Physician Assistant
DX: E87.1 Hypo-osmolality and hyponatremia (principal); I13.0 Hypertensive heart and chronic kidney disease with heart failure and stage 1 through stage 4 chronic kidney disease, or unspecified chronic kidney disease; I50.9 Heart failure, unspecified; N18.9 Chronic kidney disease, unspecified; I48.0 Paroxysmal atrial fibrillation; J43.1 Panlobular emphysema; E78.00 Pure hypercholesterolemia, unspecified; I25.10 Atherosclerotic heart disease of native coronary artery without angina pectoris; K21.9 Gastro-esophageal reflux disease without esophagitis; I25.2 Old myocardial infarction; M06.9 Rheumatoid arthritis, unspecified; Z95.5 Presence of coronary angioplasty implant and graft; Z79.01 Long term (current) use of anticoagulants; Z79.899 Other long term (current) drug therapy
CPT/HCPCS: 0241U; 36415; 71046; 74018; 80048; 80053; 82550; 83605; 83735; 83880; 84484; 85025; 85610; 86140; 87040; 99285; A9270-GY; G0378; J7040

== ENCOUNTER 2024-03-12 12:09 | Emergency (ER) | payer MEDICARE, OTHER ==
[2024-03-12] MEDS ORDERED: Sodium Chloride 0.9% 10 ML Syringe FLUSH PRN ×2 (12:23→12:55)
[2024-03-12] MEDS ORDERED: Metoprolol Tartrate 5 MG/5 ML SDV IVPUSH ONE (12:26)
[2024-03-12 12:30] LABS: BASOPHILS ABSOLUTE AUTO 0.01 K/uL (0.00-0.20); BASOPHILS PERCENT AUTO 0.2 % (0.0-2.0); EOSINOPHILS ABSOLUTE AUTO 0.18 K/uL (0.00-0.50); HEMATOCRIT 37.8 % (39.0-49.0); HEMOGLOBIN 12.7 g/dL (13.1-16.8); LYMPHOCYTES ABSOLUTE AUTO 1.37 K/uL (0.50-3.50); LYMPHOCYTES PERCENT AUTO 22.8 % (10.0-50.0); MEAN CORPUSCULAR HEMOGLOBIN 29.9 pg (28.2-33.3); MEAN CORPUSCULAR HGB CONC 33.6 g/dL (31.7-36.0); MEAN CORPUSCULAR VOLUME 88.9 fL (84.0-98.0); MONOCYTES ABSOLUTE AUTO 1.15 K/uL (0.00-1.00); MONOCYTES PERCENT AUTO 19.1 % (2.0-14.0); NEUTROPHILS PERCENT AUTO 54.9 % (45.0-80.0); PLATELET COUNT,PLT 211 K/uL (150-350); RED BLOOD CELL COUNT 4.25 M/uL (4.33-5.41); RED CELL DISTRIBUTION WIDTH 14.8 % (11.2-14.1)
[2024-03-12 12:41] LABS: PROTHROMBIN TIME 37.7 SEC (9.0-11.1)
[2024-03-12] MEDS: Lactated Ringers 1,000 ML IV ONE ×2 (13:05→13:52)
[2024-03-12 13:06] LABS: LACTIC ACID 1.5 mmol/L (0.4-2.0)
[2024-03-12 13:17] LABS: ALANINE AMINOTRANSFERASE,ALT 17 U/L (12-78); ALBUMIN 3.3 g/dL (3.4-5.0); ALKALINE PHOSPHATASE 74 IU/L (46-116); ANION GAP 11.1 meq/L (7-15); ASPARTATE AMNIOTRANSFERASE,AST 15 U/L (15-37); BILIRUBIN TOTAL 0.6 mg/dL (0.2-1.0); BLOOD UREA NITROGEN,BUN 11 mg/dL (7-18); CALCIUM 8.2 mg/dL (8.5-10.1); CARBON DIOXIDE,CO2 25.9 mmol/L (21.0-32.0); CHLORIDE,CL 100 mmol/L (98-107); CREATININE 1.16 mg/dL (0.51-1.17); ESTIMATED GFR 63 mL/min (>=60); GLUCOSE RANDOM 116 mg/dL (70-99); MAGNESIUM 1.6 mg/dL (1.8-2.4); PRO B-TYPE NATRIUR PEPT,BNPPRO 3936 pg/mL (0-125); PROTEIN TOTAL,TP 6.8 g/dL (6.4-8.2); SODIUM,NA 133 mmol/L (136-145)
[2024-03-12] MEDS: Diltiazem 25 MG/5 ML SDV IVPUSH ONE (13:35)
[2024-03-12] MEDS: Sodium Chloride 0.9% 10 ML Syringe FLUSH PRN (13:39)
[2024-03-12 16:19] VITALS: BP 115/77; PULSE 58
== END 2024-03-12 15:51 | disposition home or self-care (01) ==
LOC: LL.ED 12:09
DX: I48.91 Unspecified atrial fibrillation (principal); I10 Essential (primary) hypertension; I25.2 Old myocardial infarction; E78.00 Pure hypercholesterolemia, unspecified; Z79.01 Long term (current) use of anticoagulants; Z79.899 Other long term (current) drug therapy
CPT/HCPCS: 36415; 71046; 80053; 83605; 83735; 83880; 84484; 85025; 85610; 93005; 96361; 96374; 99285-25; J3490; J7120

== ENCOUNTER 2024-05-19 14:38 | Emergency (ER) | payer MEDICARE, OTHER ==
[2024-05-19 14:40] VITALS: BP 106/71; PULSE 61
[2024-05-19] MEDS ORDERED: Sodium Chloride 0.9% 10 ML Syringe FLUSH PRN (14:40)
[2024-05-19 14:55] LABS: BASOPHILS ABSOLUTE AUTO 0.02 K/uL (0.00-0.20); BASOPHILS PERCENT AUTO 0.3 % (0.0-2.0); EOSINOPHILS ABSOLUTE AUTO 0.39 K/uL (0.00-0.50); EOSINOPHILS PERCENT AUTO 5.2 % (0.0-5.0); HEMATOCRIT 37.4 % (39.0-49.0); HEMOGLOBIN 12.5 g/dL (13.1-16.8); LYMPHOCYTES ABSOLUTE AUTO 2.78 K/uL (0.50-3.50); LYMPHOCYTES PERCENT AUTO 37.1 % (10.0-50.0); MEAN CORPUSCULAR HEMOGLOBIN 30.7 pg (28.2-33.3); MEAN CORPUSCULAR HGB CONC 33.4 g/dL (31.7-36.0); MEAN CORPUSCULAR VOLUME 91.9 fL (84.0-98.0); MONOCYTES ABSOLUTE AUTO 1.03 K/uL (0.00-1.00); MONOCYTES PERCENT AUTO 13.7 % (2.0-14.0); NEUTROPHILS ABSOLUTE AUTO 3.28 K/uL (1.40-7.00); NEUTROPHILS PERCENT AUTO 43.7 % (45.0-80.0); PLATELET COUNT,PLT 155 K/uL (150-350); RED BLOOD CELL COUNT 4.07 M/uL (4.33-5.41); RED CELL DISTRIBUTION WIDTH 13.6 % (11.2-14.1); WHITE BLOOD CELL COUNT,WBC 7.5 K/uL (4.0-10.2)
[2024-05-19] MEDS ORDERED: Naloxone 0.4 MG/ML SDV IVPUSH PRN (15:12)
[2024-05-19 15:13] LABS: INR 1.9 (0.9-1.1); PROTHROMBIN TIME 18.1 SEC (9.0-11.1)
[2024-05-19 15:28] LABS: ALBUMIN 3.7 g/dL (3.4-5.0); ANION GAP 9.6 meq/L (7-15); BILIRUBIN TOTAL 0.5 mg/dL (0.2-1.0); CARBON DIOXIDE,CO2 27.4 mmol/L (21.0-32.0); CREATININE 1.21 mg/dL (0.51-1.17); EST CRCL DRUG DOSING (CG) 47.76 mL/min; MAGNESIUM 1.9 mg/dL (1.8-2.4); POTASSIUM,K 3.9 mmol/L (3.5-5.1); PROTEIN TOTAL,TP 6.7 g/dL (6.4-8.2)
[2024-05-19] MEDS: fentaNYL 50 MCG/ML SDV IVPUSH ONE (15:37)
== END 2024-05-19 16:25 | disposition home or self-care (01) ==
LOC: LL.ED 14:38
DX: R07.81 Pleurodynia (principal); I25.10 Atherosclerotic heart disease of native coronary artery without angina pectoris; I10 Essential (primary) hypertension; E78.00 Pure hypercholesterolemia, unspecified; K21.9 Gastro-esophageal reflux disease without esophagitis; Z79.899 Other long term (current) drug therapy; Z79.82 Long term (current) use of aspirin; Z88.8 Allergy status to other drugs, medicaments and biological substances; W19.XXXA Unspecified fall, initial encounter
CPT/HCPCS: 36415; 71111; 72170; 80053; 83735; 83880; 84484; 85025; 85610; 96374; 99283-25; 99284; J3010

== ENCOUNTER 2024-11-11 21:35 | Emergency (ER) | payer MEDICARE, OTHER ==
[2024-11-11] MEDS: Take Home: Hydrocortisone/Neomycin/Polymyxin B Otic Susp 10 ML, 1 Btle Pac EARBOTH ONE (22:11)
[2024-11-11 22:13] VITALS: BP 147/85; PULSE 62
== END 2024-11-11 22:20 | disposition home or self-care (01) ==
LOC: LL.ED 21:35
DX: H60.91 Unspecified otitis externa, right ear (principal); I48.91 Unspecified atrial fibrillation; I25.10 Atherosclerotic heart disease of native coronary artery without angina pectoris; I25.2 Old myocardial infarction; I10 Essential (primary) hypertension; E78.00 Pure hypercholesterolemia, unspecified; K21.9 Gastro-esophageal reflux disease without esophagitis; M19.90 Unspecified osteoarthritis, unspecified site; Z88.8 Allergy status to other drugs, medicaments and biological substances; Z79.01 Long term (current) use of anticoagulants; Z79.82 Long term (current) use of aspirin; Z79.899 Other long term (current) drug therapy
CPT/HCPCS: 99282; A9270

== ENCOUNTER 2024-11-21 11:27 | Emergency (ER) | payer MEDICARE, OTHER ==
[2024-11-21 11:51] LABS: BASOPHILS ABSOLUTE AUTO 0.04 K/uL (0.00-0.20); BASOPHILS PERCENT AUTO 0.6 % (0.0-2.0); EOSINOPHILS ABSOLUTE AUTO 0.18 K/uL (0.00-0.50); EOSINOPHILS PERCENT AUTO 2.5 % (0.0-5.0); HEMATOCRIT 39.6 % (39.0-49.0); HEMOGLOBIN 13.4 g/dL (13.1-16.8); IMMATURE GRAN ABSOLUTE AUTO 0.01 10^3/uL (0.00-0.04); IMMATURE GRAN PERCENT AUTO 0.1 % (0.0-0.4); LYMPHOCYTES ABSOLUTE AUTO 1.56 K/uL (0.50-3.50); LYMPHOCYTES PERCENT AUTO 21.5 % (10.0-50.0); MEAN CORPUSCULAR HEMOGLOBIN 31.1 pg (28.2-33.3); MEAN CORPUSCULAR HGB CONC 33.8 g/dL (31.7-36.0); MEAN CORPUSCULAR VOLUME 91.9 fL (84.0-98.0); MONOCYTES PERCENT AUTO 12.4 % (2.0-14.0); NEUTROPHILS ABSOLUTE AUTO 4.55 K/uL (1.40-7.00); NEUTROPHILS PERCENT AUTO 62.9 % (45.0-80.0); PLATELET COUNT,PLT 160 K/uL (150-350); RED BLOOD CELL COUNT 4.31 M/uL (4.33-5.41); RED CELL DISTRIBUTION WIDTH 13.2 % (11.2-14.1); WHITE BLOOD CELL COUNT,WBC 7.2 K/uL (4.0-10.2)
[2024-11-21 12:23] LABS: INR 2.6 (0.9-1.1); PROTHROMBIN TIME 24.3 SEC (9.0-11.1)
[2024-11-21 12:30] LABS: ALBUMIN 3.5 g/dL (3.4-5.0); BILIRUBIN TOTAL 0.5 mg/dL (0.2-1.0); CALCIUM 8.5 mg/dL (8.5-10.1); CARBON DIOXIDE,CO2 28.7 mmol/L (21.0-32.0); CREATININE 1.15 mg/dL (0.51-1.17); EST CRCL DRUG DOSING (CG) 48.67 mL/min; MAGNESIUM 1.9 mg/dL (1.8-2.4); POTASSIUM,K 4.6 mmol/L (3.5-5.1); PROTEIN TOTAL,TP 6.5 g/dL (6.4-8.2)
[2024-11-21 12:34] LABS: ANION GAP 7.9 meq/L (7-15)
[2024-11-21 13:24] VITALS: BP 113/76; PULSE 60
== END 2024-11-21 13:05 | disposition home or self-care (01) ==
LOC: LL.ED 11:27
DX: I48.0 Paroxysmal atrial fibrillation (principal); I25.10 Atherosclerotic heart disease of native coronary artery without angina pectoris; E78.00 Pure hypercholesterolemia, unspecified; I10 Essential (primary) hypertension; I25.2 Old myocardial infarction; Z95.5 Presence of coronary angioplasty implant and graft; Z88.8 Allergy status to other drugs, medicaments and biological substances; Z79.01 Long term (current) use of anticoagulants; Z79.899 Other long term (current) drug therapy; Z79.82 Long term (current) use of aspirin
CPT/HCPCS: 36415; 80053; 83605; 83735; 84484; 85025; 85610; 87428-QW; 93005; 93010; 99284; 99285

== ENCOUNTER 2025-02-22 11:17 | Emergency (ER) | payer MEDICARE, OTHER ==
[2025-02-22] MEDS: Sodium Chloride 0.9% 10 ML Syringe FLUSH PRN (11:45)
[2025-02-22] MEDS: Diltiazem 25 MG/5 ML SDV IVPUSH ONE (11:45)
[2025-02-22 11:47] LABS: BASOPHILS ABSOLUTE AUTO 0.04 K/uL (0.00-0.20); BASOPHILS PERCENT AUTO 0.6 % (0.0-2.0); EOSINOPHILS ABSOLUTE AUTO 0.18 K/uL (0.00-0.50); EOSINOPHILS PERCENT AUTO 2.8 % (0.0-5.0); IMMATURE GRAN ABSOLUTE AUTO 0.00 10^3/uL (0.00-0.04); IMMATURE GRAN PERCENT AUTO 0.0 % (0.0-0.4); LYMPHOCYTES ABSOLUTE AUTO 1.48 K/uL (0.50-3.50); LYMPHOCYTES PERCENT AUTO 22.8 % (10.0-50.0); MONOCYTES ABSOLUTE AUTO 0.82 K/uL (0.00-1.00); MONOCYTES PERCENT AUTO 12.6 % (2.0-14.0); NEUTROPHILS ABSOLUTE AUTO 3.97 K/uL (1.40-7.00); NEUTROPHILS PERCENT AUTO 61.2 % (45.0-80.0); PLATELET COUNT,PLT 163 K/uL (150-350); RED BLOOD CELL COUNT 4.22 M/uL (4.33-5.41); RED CELL DISTRIBUTION WIDTH 13.0 % (11.2-14.1); WHITE BLOOD CELL COUNT,WBC 6.5 K/uL (4.0-10.2)
[2025-02-22 12:07] LABS: ALANINE AMINOTRANSFERASE,ALT 21.0 U/L (12-78); ASPARTATE AMNIOTRANSFERASE,AST 23.0 U/L (15-37); BILIRUBIN TOTAL 0.7 mg/dL (0.2-1.0); BLOOD UREA NITROGEN,BUN 11.0 mg/dL (7-18); CARBON DIOXIDE,CO2 26.6 mmol/L (21.0-32.0); CHLORIDE,CL 98.0 mmol/L (98-107); CREATININE 1.2 mg/dL (0.51-1.17); EST CRCL DRUG DOSING (CG) 45.82 mL/min; GLUCOSE RANDOM 123.0 mg/dL (70-99); INR 2.5 (0.9-1.1); POTASSIUM,K 4.1 mmol/L (3.5-5.1); PRO B-TYPE NATRIUR PEPT,BNPPRO 5861.0 pg/mL (0-125); PROTEIN TOTAL,TP 6.4 g/dL (6.4-8.2); SODIUM,NA 132.0 mmol/L (136-145)
[2025-02-22 12:08] LABS: ESTIMATED GFR 60.0 mL/min (>=60)
[2025-02-22 15:32] VITALS: BP 129/85; PULSE 113
== END 2025-02-22 16:04 ==
LOC: LL.ED 11:17
DX: I48.91 Unspecified atrial fibrillation (principal); I10 Essential (primary) hypertension; I25.2 Old myocardial infarction; I25.10 Atherosclerotic heart disease of native coronary artery without angina pectoris; E78.00 Pure hypercholesterolemia, unspecified; K21.9 Gastro-esophageal reflux disease without esophagitis; M19.90 Unspecified osteoarthritis, unspecified site; Z79.899 Other long term (current) drug therapy; Z88.8 Allergy status to other drugs, medicaments and biological substances; Z79.01 Long term (current) use of anticoagulants; Z79.82 Long term (current) use of aspirin
CPT/HCPCS: 36415; 71046; 80053; 83735; 83880; 84484; 85025; 85610; 93005; 93010; 96374; 99284; 99285-25; J3490

== ENCOUNTER 2025-07-13 12:20 | Emergency (ER) | payer MEDICARE, OTHER ==
[2025-07-13 12:37] LABS: BASOPHILS ABSOLUTE AUTO 0.03 K/uL (0.00-0.20); BASOPHILS PERCENT AUTO 0.4 % (0.0-2.0); EOSINOPHILS ABSOLUTE AUTO 0.19 K/uL (0.00-0.50); EOSINOPHILS PERCENT AUTO 2.7 % (0.0-5.0); IMMATURE GRAN ABSOLUTE AUTO 0.01 10^3/uL (0.00-0.04); IMMATURE GRAN PERCENT AUTO 0.1 % (0.0-0.4); LYMPHOCYTES ABSOLUTE AUTO 1.74 K/uL (0.50-3.50); LYMPHOCYTES PERCENT AUTO 25.1 % (10.0-50.0); MONOCYTES ABSOLUTE AUTO 0.83 K/uL (0.00-1.00); MONOCYTES PERCENT AUTO 12.0 % (2.0-14.0); NEUTROPHILS ABSOLUTE AUTO 4.14 K/uL (1.40-7.00); NEUTROPHILS PERCENT AUTO 59.7 % (45.0-80.0); PLATELET COUNT,PLT 178 K/uL (150-350); RED BLOOD CELL COUNT 4.47 M/uL (4.33-5.41); RED CELL DISTRIBUTION WIDTH 13.0 % (11.2-14.1); WHITE BLOOD CELL COUNT,WBC 6.9 K/uL (4.0-10.2)
[2025-07-13] MEDS: Sodium Chloride 0.9% 10 ML Syringe FLUSH PRN (12:37)
[2025-07-13] MEDS: Diltiazem 25 MG/5 ML SDV IVPUSH ONE (12:37)
[2025-07-13 13:09] LABS: INR 3.2 (0.9-1.1); PTT,PARTIAL THROMBOPLSTIN TIME 35.4 SEC (23.8-34.4)
[2025-07-13 13:17] LABS: ALANINE AMINOTRANSFERASE,ALT 25.0 U/L (12-78); ASPARTATE AMNIOTRANSFERASE,AST 22.0 U/L (15-37); BILIRUBIN TOTAL 0.5 mg/dL (0.2-1.0); BLOOD UREA NITROGEN,BUN 19.0 mg/dL (7-18); CARBON DIOXIDE,CO2 26.6 mmol/L (21.0-32.0); CHLORIDE,CL 104.0 mmol/L (98-107); CREATININE 1.37 mg/dL (0.51-1.17); EST CRCL DRUG DOSING (CG) 40.14 mL/min; GLUCOSE RANDOM 107.0 mg/dL (70-99); POTASSIUM,K 4.3 mmol/L (3.5-5.1); PROTEIN TOTAL,TP 6.8 g/dL (6.4-8.2); SODIUM,NA 141.0 mmol/L (136-145)
[2025-07-13 13:21] LABS: ESTIMATED GFR 51.0 mL/min (>=60)
[2025-07-13 16:54] VITALS: BP 95/80; PULSE 94
== END 2025-07-13 16:15 | disposition home or self-care (01) ==
LOC: LL.ED 12:20
DX: I48.91 Unspecified atrial fibrillation (principal); R79.1 Abnormal coagulation profile; I10 Essential (primary) hypertension; E78.00 Pure hypercholesterolemia, unspecified; Z88.8 Allergy status to other drugs, medicaments and biological substances; Z79.01 Long term (current) use of anticoagulants; Z79.899 Other long term (current) drug therapy
CPT/HCPCS: 36415; 71045; 80053; 83735; 83880; 84484; 85025; 85610; 85730; 93005; 96374; 99285-25; J1163; J7030